=== PATIENT | female | born 1935 | race Caucasian/White ===

== ENCOUNTER 2016-11-19 06:28 | Day surgery (SDC) | payer OTHER ==
[2016-11-13 16:27] VITALS: BMI 20.7
[2016-11-19] MEDS ORDERED: ONDANSETRON 4 MG/2 ML VIAL ONE (07:16)
[2016-11-19] MEDS ORDERED: PHENYLEPHRINE HCL 10 MG/1 ML SINGLE DOSE VIAL ONE (07:16)
[2016-11-19] MEDS ORDERED: LIDOCAINE HCL/PF 2% SDV 5ML VIAL ONE (07:16)
[2016-11-19] MEDS ORDERED: DEXAMETHASONE SOD PHOSPHATE 4 MG/1 ML VIAL ONE (07:16)
[2016-11-19] MEDS ORDERED: ROCURONIUM BROMIDE 50 MG/5 ML VIAL ONE (07:17)
[2016-11-19] MEDS ORDERED: ePHEDrine SULFATE 50 MG/1 ML AMPULE ONE (07:17)
[2016-11-19] MEDS ORDERED: PROPOFOL 20 ML ONE (07:17)
[2016-11-19] MEDS ORDERED: SUCCINYLCHOLINE CHLORIDE 200 MG/10 ML VIAL ONE (07:17)
[2016-11-19] MEDS ORDERED: MIDAZOLAM HCL 2 MG/2 ML SINGLE DOSE VIAL ONE (07:31)
[2016-11-19] MEDS ORDERED: ceFAZolin SODIUM 1 GM VIAL ONE (07:48)
[2016-11-19] MEDS ORDERED: ceFAZolin SODIUM 1 GM VIAL IVPB ONE ×2 (07:48→07:58)
[2016-11-19] MEDS ORDERED: LIDOCAINE HCL 1%, 10 MG/ML (20ML VIAL) IJ ONE (08:01)
[2016-11-19] MEDS ORDERED: LIDOCAINE HCL 1%, 10 MG/ML (20ML VIAL) INF ONE (08:01)
[2016-11-19] MEDS ORDERED: SODIUM CHLORIDE 0.9% P/F 10 ML VIAL IJ ONE (08:09)
[2016-11-19] MEDS ORDERED: BACITRACIN 50,000 UNITS VIAL TP ONE (08:11)
--- NOTE | 2016-11-19 09:03 | OP ---
Operative Note - Note: Operative Date: 11/19/16 Pre-Operative Diagnosis: overactive bladder Operation: interstim removal, full interstim reimplantation Post-Operative Diagnosis: Same as Pre-op Surgeon: Tristan Leal Anesthesia: General, MAC Specimens Removed: old implant Estimated Blood Loss (mls): 5 Operative Report Dictated: Yes
[2016-11-19] MEDS ORDERED: oxyCODONE HCL 5 MG TABLET PO PRN (09:04)
[2016-11-19] MEDS ORDERED: DEXTROSE 5%-0.45% SALINE 1,000 ML IV SCH (09:15)
[2016-11-19] MEDS ORDERED: LIDOCAINE HCL 1%, 10 MG/ML (20ML VIAL) ONE (09:30)
--- NOTE | 2016-11-19 09:31 | OP ---
DATE OF OPERATION: 11/19/2016 PREOPERATIVE DIAGNOSIS: Urinary frequency, urgency. POSTOPERATIVE DIAGNOSIS: Urinary frequency, urgency. PROCEDURE: Removal of InterStim implant, placement of full InterStim implant. SURGEON: Candace Montano MD INDICATION: The patient is a 81-year-old female with frequency and urgency, who had successful InterStim implant placed in the past and now it no longer seems to be working, so she is consented for removal of the implant and placement of a new one. DESCRIPTION OF PROCEDURE: Informed consent was obtained. Patient was taken to the OR, placed prone on the operating room table. IV sedation was then administered. The lower back and buttock area was prepped and draped in standard surgical fashion. At this point incision was created over the existing battery pack in the patient's right gluteal region until the battery pack was identified. The battery pack was then removed, and then some tension was placed on the battery pack to see where the wire was inserting, and the wire was inserting in the sacrum overlying the area of the S3 foramen. A counterincision was created there and the wire was grasped. The battery pack was disconnected from the wire and sent to biology for analysis, then the wire was removed in its entirety by pulling on the wire and removing from the S3 foramen, actually confirmed complete removal of the previous InterStim. At this point then the S3 foramen was isolated under fluoroscopy, and a needle was placed in the patient's right S3 foramen and it was stimulated, with excellent motor and sensory responses. Left side was stimulated as well but with not as good responses, so the right side was kept and the left side was discarded. At this point then, through the needle a guidewire was placed, and the trocar was placed over it into the S3 foramen, and through the trocar the InterStim wire with the 4 leads was advanced so that 3 leads were below the S3 foramen bone and 1 lead was in the bone itself. All leads were then tested, with appropriate motor and sensory responses. Trocar was then removed and the wire was tunneled into the pre-existing right gluteal pocket, and then leads were cleaned and then inserted into the new battery and then screwed in place. The battery was interrogated, with appropriate impedance responses, and then attention was turned to wound closure. The pocket was closed in 2 layers with 3-0 chromic followed by running 4-0 Monocryl suture followed by Dermabond, and then the stab incision in the right S3 foramen site was closed with Dermabond. Dry sterile dressing was then placed. Patient was awoken from anesthesia and transferred to recovery room in stable condition. There were no complications. Estimated blood loss was minimal. CANDACE MONTANO M.D. [id number]
[2016-11-19] MEDS ORDERED: ONDANSETRON 4 MG/2 ML VIAL IVPUSH PRN (10:03)
[2016-11-19] MEDS ORDERED: PROMETHAZINE HCL 25 MG/1 ML VIAL IVPUSH PRN (10:03)
[2016-11-19] MEDS ORDERED: LACTATED RINGERS SOLUTION 1,000 ML IV SCH (10:15)
[2016-11-19 12:13] VITALS: TEMP 98
[2016-11-19 12:17] VITALS: BP 127/75; PULSE 56
--- NOTE | 2016-11-20 15:50 | PATH ---
Surgical Pathology Report Patient Name: NKECHI SOTO Med. Rec. #: [id number] /Age/Gender: 1935 (Age: 81) / F Account: [id number] Location: [facility] SURGICAL Taken: 11/19/2016 Received: 11/19/2016 Reported: 11/20/2016 Physicians: Tristan Leal M.D. Specimen(s) Received LEAD AND BATTERY, INTERSTIM Clinical History Urge incontinence Final Diagnosis INTERSTIM LEAD AND BATTERY, REMOVAL: LAMP CLEAN[employer] STRE[address] LIGHT (GROSS EXAM). Electronically Signed Colin Ramirez M.D. Gross Description Received fresh labeled "lead and battery" is a 4.8 x 4.2 x 0.7 cm harrell metallic device, consistent with a battery. The specimen has the following inscription: "[employer] InterStim II SN: [id number]." also received within the same container is a 22 cm in length harrell metallic wire. No soft tissue is present. No sections are submitted, gross only. /11/19/2016 saudi11/19/2016
== END 2016-11-19 11:00 | disposition home or self-care (01) ==
LOC: JASU-SURG 06:28
PROVIDERS: ATTEND Urology
PROC: 0JH70BZ Insertion of Single Array Stimulator Generator into Back Subcutaneous Tissue and Fascia, Open Approach (ICD-10-PCS; 2016-11-19)
PROC: 01PY0MZ Removal of Neurostimulator Lead from Peripheral Nerve, Open Approach (ICD-10-PCS; 2016-11-19)
PROC: 01HY0MZ Insertion of Neurostimulator Lead into Peripheral Nerve, Open Approach (ICD-10-PCS; 2016-11-19)
PROC: 0JPT0MZ Removal of Stimulator Generator from Trunk Subcutaneous Tissue and Fascia, Open Approach (ICD-10-PCS; principal; 2016-11-19 07:30)
DX: T85.113A Breakdown (mechanical) of implanted electronic neurostimulator, generator, initial encounter (principal); R35.0 Frequency of micturition; R39.15 Urgency of urination
CPT/HCPCS: 64581; 64590; C1767; C1778; 76000-TC; 88300-TC; 94760